=== PATIENT | male | born 1990 | race African-American/Black ===

== ENCOUNTER 2017-11-24 14:50 | Emergency (ER) | payer SELFPAY ==
[~2017-11-24] VITALS: Ht 180.3 cm; Wt 115.8 kg
[~2017-11-24 14:50] MED LIST: BACTRIM,SEPT1 TABLET PO; CEFDINIR300 MG PO; NORCO 5/3251 TABLET PO
[2017-11-24 15:33] LABS: HEMATOCRIT 47.5 % (38.0-50.0); HEMOGLOBIN 15.9 G/DL (12.5-16.6); MCH 29.3 PG (29.0-34.0); MCHC 33.5 G/DL (30.0-36.0); MCV 87.6 FL (86-99); PLATELET COUNT 238 K/uL (156-360); RBC DIS.WIDTH-CV 11.5 % (11.8-14.6); RBC DIS.WIDTH-SD 36.8 % (39-53); RED BLOOD COUNT 5.42 M/uL (4.00-5.50); WHITE BLOOD COUNT 7.4 K/uL (4.1-10.2)
[2017-11-24 15:44] LABS: CHLORIDE 108 mEq/L (99-109); POTASSIUM 3.9 mEq/L (3.7-5.4); SODIUM 144 mEq/L (136-147)
[2017-11-24 15:46] LABS: GLUCOSE 72 mg/dL (70-99)
[2017-11-24 15:49] LABS: GFR ESTIMATE (CALCULATED) > 59 mL/min/ (58.99-99999)
[2017-11-24 15:50] LABS: UREA NITROGEN (BUN) 11 mg/dL (9-23)
[2017-11-24 15:56] LABS: TROP-I INTERPRETATION NEGATIVE; TROPONIN-I < 0.01 ng/mL (0.0-0.30)
[2017-11-24 18:41] VITALS: BP 148/83
== END 2017-11-24 18:42 | disposition home or self-care (01) ==
LOC: EME 14:50
DX: R07.9 Chest pain, unspecified (principal); G43.909 Migraine, unspecified, not intractable, without status migrainosus; I10 Essential (primary) hypertension
CPT/HCPCS: 71046; 80048; 84484; 85027; 93005; 99281; 99285; J1200; J2765; J7030

== ENCOUNTER 2017-12-25 19:05 | Emergency (ER) | payer SELFPAY ==
[~2017-12-25] VITALS: Ht 180.3 cm; Wt 115.7 kg
[2017-12-25] MEDS ORDERED: MOTRIN600 MG PO (20:29)
[2017-12-25] MEDS ORDERED: AMOXICILLIN875 MG PO (20:29)
[2017-12-25] MEDS ORDERED: TRAMADOL HCL50 MG PO (20:29)
[2017-12-25 20:49] VITALS: BP 179/125
== END 2017-12-25 21:22 | disposition home or self-care (01) ==
LOC: RME 19:05 → EME 19:05 → RME 21:22
DX: K08.89 Other specified disorders of teeth and supporting structures (principal); I10 Essential (primary) hypertension
CPT/HCPCS: 99281; 99283

== ENCOUNTER 2017-12-26 07:30 | Emergency (ER) | payer SELFPAY ==
[~2017-12-26] VITALS: Ht 180.3 cm; Wt 115.8 kg
[~2017-12-26 07:30] MED LIST changes: +AMOXICILLIN875 MG PO; +MOTRIN600 MG PO; +TRAMADOL HCL50 MG PO
[2017-12-26 09:13] VITALS: BP 169/132
== END 2017-12-26 09:22 | disposition home or self-care (01) ==
LOC: EME 07:30
DX: K08.89 Other specified disorders of teeth and supporting structures (principal); H66.93 Otitis media, unspecified, bilateral
CPT/HCPCS: 99281; 99284; J1100; J1885

== ENCOUNTER 2018-03-11 11:37 | Emergency (ER) | payer OTHER ==
[~2018-03-11] VITALS: Ht 180.3 cm; Wt 116.3 kg
[2018-03-11] MEDS ORDERED: LIDODERM 5% P1 PATCH TD (13:43)
[2018-03-11] MEDS ORDERED: MOBIC7.5 MG PO (13:43)
[2018-03-11] MEDS ORDERED: FLEXERIL10 MG PO (13:43)
[2018-03-11 14:09] VITALS: BP 159/106
== END 2018-03-11 14:10 | disposition home or self-care (01) ==
LOC: EME 11:37
DX: S39.012A Strain of muscle, fascia and tendon of lower back, initial encounter (principal); X50.0XXA Overexertion from strenuous movement or load, initial encounter; Y93.89 Activity, other specified; Y99.0 Civilian activity done for income or pay
CPT/HCPCS: 99281; 99283

== ENCOUNTER 2018-03-15 02:31 | Emergency (ER) | payer OTHER ==
[~2018-03-15 02:31] MED LIST changes: +FLEXERIL10 MG PO; +LIDODERM 5% P1 PATCH TD; +MOBIC7.5 MG PO
[2018-03-15 02:55] LABS: BASOPHIL (%) 1.2 % (0-1); BASOPHIL COUNT 0.1 K/uL (0-0.1); EOSINOPHIL (%) 1.3 % (0-5); EOSINOPHIL COUNT 0.1 K/uL (0-0.3); HEMATOCRIT 47.5 % (38.0-50.0); HEMOGLOBIN 15.6 G/DL (12.5-16.6); IMMATURE GRANULOCYTE (%) 3.7 % (0.0-0.7); LYMPHOCYTE (%) 33.4 % (15-42); LYMPHOCYTE COUNT 3.3 K/uL (1.0-2.8); MCHC 32.8 G/DL (30.0-36.0); MCV 88.3 FL (86-99); MONOCYTE (%) 7.5 % (3-12); MONOCYTE COUNT 0.7 K/uL (0-0.8); NEUTROPHIL (%) 52.9 % (45-76); NEUTROPHIL COUNT 5.2 K/uL (1.8-6.4); PLATELET COUNT 262 K/uL (156-360); RBC DIS.WIDTH-CV 11.9 % (11.8-14.6); RBC DIS.WIDTH-SD 37.8 % (39-53); RED BLOOD COUNT 5.38 M/uL (4.00-5.50); WHITE BLOOD COUNT 9.9 K/uL (4.1-10.2)
[2018-03-15 03:48] LABS: AMYLASE 80 IU/L (1-118); CHLORIDE 106 mEq/L (99-109); POTASSIUM 3.7 mEq/L (3.7-5.4); SODIUM 140 mEq/L (136-147)
[2018-03-15 03:50] LABS: GLUCOSE 96 mg/dL (70-99)
[2018-03-15 03:53] LABS: CREATININE 1.2 mg/dL (0.6-1.3); GFR ESTIMATE (CALCULATED) > 59 mL/min/ (58.99-99999); SERUM ETHYL ALCOHOL 109 mg/dL
[2018-03-15 03:54] LABS: UREA NITROGEN (BUN) 11 mg/dL (9-23)
[2018-03-15 03:56] LABS: LIPASE 19 U/L (1.0-51.0)
[2018-03-15 04:10] LABS: APPEARANCE CLEAR ((CLEAR)); BILIRUBIN NEGATIVE; BLOOD SMALL; COLOR YELLOW ((YELLOW)); GLUCOSE (STRIP) NEGATIVE; KETONES NEGATIVE; LEUKOCYTES NEGATIVE; NITRITE NEGATIVE; PROTEIN (STRIP) 100; SPECIFIC GRAVITY 1.016 (1.000-1.030); UROBILINOGEN 0.2 MG/DL (0.2-1.0)
[2018-03-15 04:18] LABS: BACTERIA NONE SEEN /HPF; EPITHELIAL CELLS NONE SEEN /HPF; HYALINE CASTS 0-5 /LPF; MUCUS TRACE /LPF; RED BLOOD CELLS 0-5 /HPF (0-5); UCUL ADDED? NO; WHITE BLOOD CELLS 0-5 /HPF (0-5)
[2018-03-15 04:18] LABS: AMPHETAMINE NEGATIVE (500 ng/mL); BARBITURATES NEGATIVE (200 ng/mL); BENZODIAZEPINES NEGATIVE (150 ng/mL); BUPRENORPHINE NEGATIVE (10 ng/mL); COCAINE NEGATIVE (150 ng/mL); METHADONE NEGATIVE (200 ng/mL); METHAMPHETAMINE NEGATIVE (500 ng/mL); OPIATES (MORPHINE) NEGATIVE (100 ng/mL); OXYCODONE NEGATIVE (100 ng/mL); PHENCYCLIDINE NEGATIVE (25 ng/mL); PROPOXYPHENE NEGATIVE (300 ng/mL); THC CANNABINOIDS NEGATIVE (50 ng/mL); TRICYCLIC ANTIDEPRESSANTS NEGATIVE (300 ng/mL)
[2018-03-15] MEDS ORDERED: AUGMENTIN875 MG PO (05:06)
[2018-03-15] MEDS ORDERED: MOTRIN800 MG PO (05:06)
== END 2018-03-15 05:49 | disposition home or self-care (01) ==
LOC: TRA 02:31
PROVIDERS: Emergency Medicine
DX: S60.221A Contusion of right hand, initial encounter (principal); S61.411A Laceration without foreign body of right hand, initial encounter; S09.8XXA Other specified injuries of head, initial encounter; F10.129 Alcohol abuse with intoxication, unspecified; Y04.2XXA Assault by strike against or bumped into by another person, initial encounter; Z23 Encounter for immunization; Y90.5 Blood alcohol level of 100-119 mg/100 ml
CPT/HCPCS: 70450; 70486; 72125; 73130; 80047; 80048; 81003; 82150; 83690; 85025; 86850; 86900; 86901; 99281; 99285; G0480